=== PATIENT | female | born 1965 | race Caucasian/White ===

== ENCOUNTER 2020-03-03 13:30 | Emergency (ER) | payer BC, OTHER ==
[~2020-03-03] VITALS: Ht 154.9 cm; Wt 72.6 kg
--- NOTE | ~2020-03-03 | EMS ---
[address] [address] EMS Patient Care Report Name: BERT CLEMENTE Room #: PRE M.R.#: [id number] Admission: Attend Phys: Discharge: Date of : 69 Report #: [id number] THIS REPORT FOR: //name// Report Transmitted: 03/03/2020 13:09 EMS Care Summary [facility] MED-ACT Incident [id number] @ 03/03/2020 12:52 Incident Location [address] [place] [address] Patient BERT CLEMENTE Female, 54 Years 1965 Patient Address [address] [place] [address] Patient History Hypertension (HTN),Cardiac - Stent, Patient Allergies No known allergies, Patient Medications Carvedilol, Atorvastatin, Losartan, Nitroglycerin, Chief Complaint Chest pressure Disposition Transported No Lights/[place] Dispatch Reason Chest Pain (Non-Traumatic) Transported To [facility] Narrative Complaint: Chest pressure and back pain History: Pt reports that she developed mid back pain while at home yesterday which progressed and became a little worse today. Today, the patient went to [address] [address] EMS Patient Care Report Name: BERT CLEMENTE Room #: PRE ER M.R.#: [id number] Admission: Attend Phys: Discharge: Date of : 69 Report #: [id number] work (at a [employer]) and worked for several hours and was preparing to go home when her back pain traveled to her chest and developed as a "heaviness". Pt states that she started to have a hard time breathing and had 911 called. Pt reports that she had a heart attack on 02/11/2020 with a stent placement that day. Pt reports that her chest pain at that time is similar to what she is experiencing today. 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 Pt has no obvious s / s of trauma noted. Rendered Treatment: Pt evaluated, history obtained, pt assisted to cot (which is located at back door), secured and moved to unit for further evaluation. Vitals assessed, EKG monitored with 12 lead, ASA administered. Pt requested to be transported to [facility] ER via EMS per her doctors request whom she contacted prior to EMS being called. Transport: Vitals re-assessed with bi-lateral BP's, EKG monitored, IV established, nitro administered, blood glucose obtained, bio-com report to ER given. Destination: Pt transported to [facility] ER via EMS. Pt care transferred to RN in ER room 7 with no changes en route. Pt able to slide self from EMS cot to ER bed without difficulty. Initial Vitals @13:06MI Suspected: false @13:16P: 63,R: 20,BP: 161/90,Glucose: 100,SpO2: 98, @13:05P: 62,R: 20,BP: 177/92,Pain: 5/10,GCS: 15,SpO2: 98,Revised Trauma: 12, @13:07P: 62,R: 20,BP: 174/75,SpO2: 98, @13:22P: 64,R: 20,BP: 149/92,Pain: 5/10,GCS: 15,SpO2: 95,Revised Trauma: 12, Assessments @13:10MENTAL:Person Oriented,Time Oriented,Place Oriented,Event Oriented,SKIN:HEENT:Eyes: Left Pupil: 4-mm,Eyes: Right Pupil: 4-mm,Head/Face: No Abnormalities,LUNG SOUNDS:General: No Abnormalities,ABDOMEN:General: No Abnormalities,PELVIS//GI:EXTREMITIES:Left Arm: No Abnormalities,Right Arm: No Abnormalities,Left Leg: No Abnormalities,Right Leg: No Abnormalities,PULSE:Radial: 2+ Normal,NEURO:No Abnormalities, Impression Chest Pain / Discomfort Procedures @13:0612-Lead ECGResponse: UnchangedSucceeded@13:10Saline Lock 10cc (20 ga) Site: Antecubital-LeftResponse: UnchangedSucceeded@13:07[facility] [address] [place] [address] [facility] Patient Care Report Name: BERT CLEMENTE Room #: PRE M.R.#: [id number] Admission: Attend Phys: Discharge: Date of : 69 Report #: [id number] Milligrams (mg) - OralResponse: Unchanged@13:40Nitroglycerin - 0.4 Milligrams (mg) - SublingualResponse: Unchanged Timeline 12:50,Call Received 12:50,Psap Call 12:52,Dispatched 12:53,En Route 12:58,On Scene 12:59,At Patient 13:05,BP: 177/92 M,PULSE: 62,RR: 20 R,SPO2: 98 Ox,ETCO2: ,BG: ,PAIN: 5,GCS: 15, 13:06,12-Lead ECG,Response: UnchangedSucceeded, 13:06,BP: / M,PULSE: ,RR: R,SPO2: Ox,ETCO2: ,BG: ,PAIN: ,GCS: , 13:07,BP: 174/75 M,PULSE: 62,RR: 20 R,SPO2: 98 Ox,ETCO2: ,BG: ,PAIN: ,GCS: , 13:07,Aspirin - 324 Milligrams (mg) - Oral,Response: Unchanged 13:09,Depart Scene 13:10,Saline Lock 10cc 20 ga Site: Antecubital-Left,Response: UnchangedSucceeded, 13:16,BP: 161/90 M,PULSE: 63,RR: 20 R,SPO2: 98 Ox,ETCO2: ,B,PAIN: ,GCS: , 13:22,BP: 149/92 M,PULSE: 64,RR: 20 R,SPO2: 95 Ox,ETCO2: ,BG: ,PAIN: 5,GCS: 15, 13:24,At Destination 13:40,Nitroglycerin - 0.4 Milligrams (mg) - Sublingual,Response: Unchanged 13:54,Call Closed Disclaimer v1.1 Copyright 2020 [employer] This EMS Care Summary contains data elements from the applicable legal record (which may be displayed differently). It is designed to provide pertinent information for the following purposes: continuity of care, clinical quality, and state data reporting. The complete legal record is available to ED staff and administrators of the receiving hospital in [employer] Patient Tracker. All data is provided "as is."
[2020-03-03 13:48] LABS: ABSOLUTE NEUTROPHILS 3.5 thou/uL (1.4-8.2); BASOPHILS 0.7 % (0.0-2.0); EOSINOPHILS 1.1 % (0.0-3.0); HEMATOCRIT 42.7 % (37.0-47.0); HEMOGLOBIN 14.3 gm/dL (12.0-15.0); LYMPHOCYTES 34.3 % (24.0-44.0); MCH 29.3 pg (26.0-34.0); MCHC 33.5 g/dL (28.0-37.0); MCV 87.4 fL (80.0-100.0); MONOCYTES 7.4 % (1.0-8.0); PLATELET COUNT 280 thou/uL (150-400); POLYS 56.5 % (36.0-66.0); RBC 4.89 mil/uL (4.20-5.00); WBC 6.3 thou/uL (4.0-11.0)
[2020-03-03] MEDS ORDERED: LIPITOR40 MG PO (13:52)
[2020-03-03] MEDS ORDERED: BYSTOLIC10 MG PO (13:52)
[2020-03-03] MEDS ORDERED: EFFIENT10 MG PO (13:52)
[2020-03-03] MEDS ORDERED: FOSAMAX 70 MG T70 MG PO (13:53)
[2020-03-03] MEDS ORDERED: NORVASC 2.5 MG2.5 M1 PO (13:53)
[2020-03-03] MEDS ORDERED: FLONASE 0.05%50 MCG NARES (13:53)
[2020-03-03] MEDS ORDERED: OMEPRAZOLE 20 M20 M1 PO (13:54)
[2020-03-03] MEDS ORDERED: NABUMETONE 750750 M1 PO (13:54)
[2020-03-03] MEDS ORDERED: COZAAR 25 MG TA25 M1 PO (13:55)
[2020-03-03] MEDS ORDERED: CARVEDILOL12.5 MG PO (13:57)
[2020-03-03 14:01] LABS: ANION GAP 12 mmol/L (7-16); BUN 12 mg/dL (7-18); CHLORIDE 104 mmol/L (98-107); CO2 25 mmol/L (21-32); CREATININE 0.9 mg/dL (0.6-1.0); GLUCOSE 111 mg/dL (74-106); POTASSIUM 3.4 mmol/L (3.5-5.1); SODIUM 141 mmol/L (136-145)
[2020-03-03 14:06] LABS: SGOT 30 U/L (15-37); SGPT 98 U/L (30-65); TOTAL BILIRUBIN 0.5 mg/dL (0.2-1.0); TOTAL PROTEIN 7.7 g/dL (6.4-8.2); TROPONIN-I <0.06 ng/mL (<0.06)
[2020-03-03] MEDS ORDERED: BRILINTA60 MG PO (14:06)
[2020-03-03] MEDS ORDERED: DOXYCYCLINE 10100 MG PO (15:53)
[2020-03-03 16:34] VITALS: BP 141/75
--- NOTE | 2020-03-04 08:37 | EKG ---
[facility] [place] [address] ELECTROCARDIOGRAM REPORT Name: BERT CLEMENTE Room #: DEP [facility]#: [id number] Admission: 03/03/20 Attend Phys: Discharge: 03/03/20 Date of : 69 Report #: [id number] THIS REPORT FOR: cc: Arielle Serrano Karen K. RNP Lundgren, Craig H. 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
== END 2020-03-03 16:34 | disposition home or self-care (01) ==
LOC: ER 13:30
PROVIDERS: Emergency Medicine
DX: J18.9 Pneumonia, unspecified organism (principal); I25.2 Old myocardial infarction; I10 Essential (primary) hypertension; E78.5 Hyperlipidemia, unspecified; Z79.899 Other long term (current) drug therapy; Z88.7 Allergy status to serum and vaccine

== ENCOUNTER → 2020-03-05 | Outpatient (CLI) | payer BC, OTHER ==
[~2020-03-05] MED LIST: BRILINTA60 MG PO; BYSTOLIC10 MG PO; CARVEDILOL12.5 MG PO; COZAAR 25 MG TA25 M1 PO; DOXYCYCLINE 10100 MG PO; EFFIENT10 MG PO; FLONASE 0.05%50 MCG NARES; FOSAMAX 70 MG T70 MG PO; LIPITOR40 MG PO; NABUMETONE 750750 M1 PO; NORVASC 2.5 MG2.5 M1 PO; OMEPRAZOLE 20 M20 M1 PO
== END ==
LOC: SJCVCIMAG 10:47
PROVIDERS: ATTEND Internal Medicine Cardiovascular Disease
DX: I08.2 Rheumatic disorders of both aortic and tricuspid valves (principal); I25.10 Atherosclerotic heart disease of native coronary artery without angina pectoris; I10 Essential (primary) hypertension; R07.9 Chest pain, unspecified; R06.09 Other forms of dyspnea; Z95.5 Presence of coronary angioplasty implant and graft

== ENCOUNTER → 2020-09-06 | Outpatient (CLI) | payer BC, OTHER | LOC: SJCVCIMAG 08:49 | PROVIDERS: ATTEND Internal Medicine Cardiovascular Disease | DX: I25.10 Atherosclerotic heart disease of native coronary artery without angina pectoris (principal); I25.2 Old myocardial infarction; I10 Essential (primary) hypertension; E78.5 Hyperlipidemia, unspecified; Z95.5 Presence of coronary angioplasty implant and graft; Z82.49 Family history of ischemic heart disease and other diseases of the circulatory system ==